=== PATIENT | male | born 1995 | race African-American/Black ===

== ENCOUNTER 2022-03-21 21:26 | Inpatient (IN) | payer BC, SELFPAY ==
[2022-03-21 21:32] VITALS: BP 124/71; PULSE 96; RESP 16; TEMP 36.7; O2SAT 100; BMI 33.3
[2022-03-21 22:04] LABS: MANUAL DIFF FLAG NO
[2022-03-21 22:07] LABS: Basophils Percent Auto 0.4 % (0-2); Eosinophils Absolute Auto 0.2 X10*3/uL (0.0-0.4); Hematocrit 46.5 % (42.0-52.0); Hemoglobin 14.9 g/dl (14.0-18.0); Imm Gran Abs Auto 0.01 X10*3/uL (0.00-0.03); Imm Gran Pct Auto 0.2 % (0.0-0.4); Lymphocytes Absolute Auto 1.7 X10*3/uL (1.2-4.9); Lymphocytes Percent Auto 36.3 % (20-40); Mean Corpuscular Hemoglobin 25.9 pg (27.0-33.0); Mean Corpuscular Volume 80.9 fL (80.0-98.0); Mean Platelet Volume 10.2 fL (9.4-12.4); Monocytes Absolute Auto 0.4 X10*3/uL (0.1-1.2); Monocytes Percent Auto 8.4 % (2-11); Neutrophils Absolute Auto 2.4 x10*3/uL (2.0-8.3); Neutrophils Percent Auto 50.7 % (45-73); Platelet Count 276 X10*3/uL (160-400); Red Blood Count 5.75 X10*6/uL (4.60-5.80); Red Cell Distribution Width 12.9 % (11.0-16.0); White Blood Count 4.8 X10*3/uL (4.8-10.8)
[2022-03-21 22:23] LABS: Alanine Aminotransferase 16 U/L (0-40); Albumin Level 4.1 g/dL (3.5-5.0); Alkaline Phosphatase 39 U/L (39-117); Anion Gap 11 (12-20); Aspartate Amino Transferase 17 U/L (5-37); Bilirubin Total 0.9 mg/dL (0.0-1.0); Blood Urea Nitrogen 8 mg/dL (9-16); Calcium 8.9 mg/dL (8.4-10.2); Carbon Dioxide 24 mmol/L (22-29); Chloride 106 mmol/L (96-108); Creatinine Clr Calc Pharmacy 126.1; Estimated Glomerular Filt Rate > 60; Ethanol < 10 mg/dL; Glucose Random 112 mg/dL (60-115); Sodium 137 mmol/L (135-145); Total Protein 7.9 g/dL (6.5-8.0)
[2022-03-21 22:34] LABS: COVID-19 Test Negative (Negative)
--- NOTE | 2022-03-21 22:34 | ED_ITS ---
HPI - Psych General Chief Complaint: Psychiatric Symptoms Stated Complaint: Crisis Time Seen by Provider: 03/21/22 22:26 Source: patient Mode of arrival: ambulatory Limitations: no limitations History of Present Illness HPI Narrative: Patient comes to the emergency room complaining of vague suicidal statements. Patient states that he has been very depressed, going through the patient ship distress. Patient states that he does not want hurt himself but he does not want to be here anymore. Patient denies homicidal ideation. Patient states in the past he has been diagnosed with major depression, has tried bupropion without any success. Patient has been off his medications for over 3 years. Patient denies any other complaints. Related Data Home Medications Medication Instructions Recorded Confirmed No Known Home Meds 03/21/22 03/21/22 Allergies Allergy/AdvReac Type Severity Reaction Status Date / Time No Known Allergies Allergy Verified 03/21/22 21:32 Review of Systems Review of Systems: Constitutional : No Weight loss, No Fever, No Chills, No Night Sweats, No Fatigue, No Malaise ENT/Mouth : No Hearing loss, No Ear Pain, No Nasal Congestion, No Sinus Pain, No Hoarseness, No sore throat, No Rhinorrhea, No Swallowing Difficulty Eyes: No Eye Pain, No Swelling, No Redness, No Foreign Body, No Discharge, No Vision Changes Cardiovascular : No Chest Pain, No SOB, No Dyspnea on Exertion, No Orthopnea, No Edema, No Palpitations Respiratory : No Cough, No Sputum, No Wheezing, No Smoke Exposure, No Dyspnea Gastrointestinal : No Nausea, No Vomiting, No Diarrhea, No Constipation, No abdominal Pain, No Hematochezia, No Melena Genitourinary : no irregular bleeding, No Dysuria, No Urinary Frequency, No Hematuria, No Urinary Incontinence, No Urgency, No Flank Pain, No Urinary Flow Changes, No Hesitancy Musculoskeletal : No joint pain, No Myalgias, No Joint Swelling Skin : No Skin Lesions, No rash Neuro : No Weakness, No Numbness, No Paresthesias, No Loss of Consciousness, No Dizziness, No Headache Psych : No anxiety, complaining of depression, vague SI, no HI Heme/Lymph: No Bruising, No Bleeding,No Lymphadenopathy Endocrine : No Polyuria, No Polydipsia, No Temperature Intolerance PMFSH Past Medical History Medical History Major depression Social History Social History Advance Directives: No Advance Directives Information Provided: No Physical Exam Vital Signs: Vital Signs: Last Vital Signs Temp 98.1 F 03/21/22 21:32 Pulse 96 03/21/22 21:32 Resp 16 03/21/22 21:32 BP 124/71 03/21/22 21:32 Pulse Ox 100 03/21/22 21:32 O2 Del Method 03/21/22 21:32 BMI result Body Mass Index 33.3 Const: Other: Appearance: Alert. Oriented X3. No acute distress. Eyes: Pupils equal, round and reactive to light. ENT: Pharynx normal. Neck: Normal inspection. Neck supple. No lymph nodes noted. No crepitus CVS: Normal heart rate and rhythm. Pulses normal. Normal S1 and S2 Respiratory: No respiratory distress. Breath sounds normal. No Wheezing. No rales Abdomen: Soft and nontender. No rigidity. No distention. Skin: Skin warm and dry. Normal skin color. Normal skin turgor. Extremities: No lower extremity edema. No Lacerations. No Rash Neuro: Oriented X 3. No motor deficit. No sensory deficit. Moving all extremities. No slurred speech. CN 2 through 12 grossly intact Psych: calm, cooperative, flat affect Course Course Course Narrative: At this time, patient is not on a Section 12. Behavioral health network consult pending. Physician observation started at 22:30 [facility] - Psych Lab Data Result diagrams: 03/21/22 21:43 03/21/22 21:43 Labs: Lab Results 03/21/22 03/21/22 Range/Units 21:43 21:43 WBC 4.8 (4.8-10.8) X10*3/uL RBC 5.75 (4.60-5.80) X10*6/uL Hgb 14.9 (14.0-18.0) g/dl Hct 46.5 (42.0-52.0) % MCV 80.9 (80.0-98.0) fL MCH 25.9 L (27.0-33.0) pg MCHC 32.0 (31.0-36.0) g/dl RDW 12.9 (11.0-16.0) % Plt Count 276 (160-400) X10*3/uL MPV 10.2 (9.4-12.4) fL Immature Gran % (Auto) 0.2 (0.0-0.4) % Neut % (Auto) 50.7 (45-73) % Lymph % (Auto) 36.3 (20-40) % Storey % (Auto) 8.4 (2-11) % Eos % (Auto) 4.0 (0-4) % Baso % (Auto) 0.4 (0-2) % Lymph # (Auto) 1.7 (1.2-4.9) X10*3/uL [place]y # (Auto) 0.4 (0.1-1.2) X10*3/uL Eos # (Auto) 0.2 (0.0-0.4) X10*3/uL Baso # (Auto) 0.0 (0.0-0.2) X10*3/uL Abs Immat Gran (auto) 0.01 (0.00-0.03) X10*3/uL Absolute Neuts (auto) 2.4 (2.0-8.3) x10*3/uL Absolute Nucleated RBC 0.000 (0.0-0.012) X10*3/uL Nucleated RBC % (auto) 0.0 (0.0-0.2) /100WBC Sodium 137 (135-145) mmol/L Potassium 4.0 (3.3-5.1) mmol/L Chloride 106 (96-108) mmol/L Carbon Dioxide 24 (22-29) mmol/L Anion Gap 11 L (12-20) BUN 8 L (9-16) mg/dL Creatinine 1.00 (0.5-1.4) mg/dL Estim Creat Clear Calc 126.1 Estimated GFR > 60 Random Glucose 112 (60-115) mg/dL Calcium 8.9 (8.4-10.2) mg/dL Total Bilirubin 0.9 (0.0-1.0) mg/dL AST 17 (5-37) U/L ALT 16 (0-40) U/L Alkaline Phosphatase 39 (39-117) U/L Total Protein 7.9 (6.5-8.0) g/dL Albumin 4.1 (3.5-5.0) g/dL Ethyl Alcohol < 10 mg/dL Discharge Plan Discharge Clinical Impression: Depression Patient Disposition: Still a Patient Prescriptions: No Action No Known Home Meds
[2022-03-21 22:46] LABS: Appearance Urine CLEAR; Color Urine YELLOW; Glucose Urine UA NEG (NEG); Leukocyte Esterase Urine NEG (NEG); Nitrite Urine NEG (NEG); Specific Gravity - Urine 1.025 (1.005-1.025); Urine Blood NEG (NEG); Urine Ketones NEG (NEG); Urine Protein NEG (NEG-TRACE)
[2022-03-21 23:15] LABS: Amphetamine Screen Urine Not Detected (Not Detect); Barbiturates, Urine Not Detected (Not Detect); Benzodiazepines Screen Urine Not Detected (Not Detect); Cannabinoid Screen Urine POSITIVE (Not Detect); Cocaine Screen Urine Not Detected (Not Detect); Fentanyl, urine Not Detected (Not Detect); Opiate Screen Urine Not Detected (Not Detect); Phencyclidine Screen Urine Not Detected (Not Detect)
--- NOTE | 2022-03-22 | ECG_ITS ---
Test Reason : MED CLEARANCE Blood Pressure : / mmHG Vent. Rate : 060 BPM Atrial Rate : 060 BPM P-R Int : 164 ms QRS Dur : 098 ms QT Int : 394 ms P-R-T Axes : -13 058 048 degrees QTc Int : 394 ms Normal sinus rhythm Normal ECG No previous ECGs available Referred By: Shoshana Selby Electronically Signed By:MICHAEL ALBARADO
[2022-03-22 06:29] VITALS: BP 121/68; PULSE 62; RESP 17; TEMP 36.4; O2SAT 99
--- NOTE | 2022-03-22 06:30 | PC.NURSE ---
Patient slept through the night, no distress observed/reported, care consult ordered/awaiting assessment, VSS, behavior non concerning, mood depressed, affect flat, patient is not on any medication at this time, will continue to monitor.
--- NOTE | 2022-03-22 07:14 | PC.NURSE ---
pstient appears to remain asleep at present respirations are even and unlabored patient appears in no distress
[2022-03-22 14:06] VITALS: BP 130/78; PULSE 56; O2SAT 100
[2022-03-22 18:00] VITALS: BP 130/78; PULSE 66; RESP 16; TEMP 36.4; O2SAT 100
[2022-03-22] MEDS: traZODone HCL 50 MG TABLET PO (21:07)
[2022-03-22] MEDS: hydrOXYzine HCL 25 MG TABLET PO (21:08)
[2022-03-23 06:00] VITALS: BP 113/62; PULSE 60; TEMP 36.6; O2SAT 100
[2022-03-23 09:09] LABS: Alanine Aminotransferase 15 U/L (0-40); Albumin Level 4.1 g/dL (3.5-5.0); Alkaline Phosphatase 39 U/L (39-117); Anion Gap 10 (12-20); Aspartate Amino Transferase 14 U/L (5-37); Bilirubin Total 1.3 mg/dL (0.0-1.0); Blood Urea Nitrogen 9 mg/dL (9-16); Calcium 9.3 mg/dL (8.4-10.2); Carbon Dioxide 29 mmol/L (22-29); Chloride 101 mmol/L (96-108); Cholesterol 131 mg/dL; Creatinine Clr Calc Pharmacy 113.6; Estimated Glomerular Filt Rate > 60; Glucose Fasting 83 mg/dL (60-99); HDL Cholesterol 53 mg/dL; LDL Cholesterol Calculated 65 mg/dl; Potassium 4.2 mmol/L (3.3-5.1); Sodium 136 mmol/L (135-145); Triglycerides 65 mg/dL
--- NOTE | 2022-03-23 14:49 | P.HPPS_ITS ---
HPI Date of Service: 03/23/22 Chief Complaint: Depression and SI Sources of Information: patient interviewed, chart reviewed and crisis/core team assessment reviewed HPI Subjective Notes: Conditional Voluntary Narrative: 26-year-old male, reports main goal is to get a therapist and medications to help with depression. Also wants to help communicate better with those around him. Reports over the last 2-3 weeks has been more depressed, much less motivation and energy, sleeping excessively, poor concentration. Passive wish. No active SI. No psychosis. No lowell. No substance issues. Stable work, relationship and living situation. Discussed medications and previously experienced sexual side effects on Zoloft and Wellbutrin. Also felt more anxious on both. Sedation on Vistaril. Discussed starting buspirone 5 mg twice daily. Past Psychiatric History: 1st admission. No medication or therapy since 2018 for fast 2019. Sexual side effects on Zoloft and Wellbutrin. No history of psychosis, lowell or suicide attempts. Medical Evaluation Reviewed: Yes [facility] Medical History Major depression Social History: Living with girlfriend of 9 months at his girlfriend's sister's house. No children. 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 No legal issues. Occasional marijuana use. Diagnostics Vital Signs (24Hr): Vital Signs - 24 hr 03/22/22 18:00 03/23/22 06:00 Temperature 97.6 F 97.9 F Pulse Rate 66 60 Respiratory Rate 16 Blood Pressure 130/78 113/62 Pulse Oximetry 100 100 Oxygen Delivery Method Room Air Room Air BMI result Body Mass Index 33.3 Labs Results: 03/21/22 21:43 03/23/22 07:30 Labs: Laboratory Results - last 48 hr 03/21/22 03/21/22 03/21/22 21:43 21:43 21:43 WBC 4.8 RBC 5.75 Hgb 14.9 Hct 46.5 MCV 80.9 MCH 25.9 L MCHC 32.0 RDW 12.9 Plt Count 276 MPV 10.2 Immature Gran % (Auto) 0.2 Neut % (Auto) 50.7 Lymph % (Auto) 36.3 [place]agher % (Auto) 8.4 Eos % (Auto) 4.0 Baso % (Auto) 0.4 Lymph # (Auto) 1.7 Meagher # (Auto) 0.4 Eos # (Auto) 0.2 Baso # (Auto) 0.0 Abs Immat Gran (auto) 0.01 Absolute Neuts (auto) 2.4 Absolute Nucleated RBC 0.000 Nucleated RBC % (auto) 0.0 Sodium 137 Potassium 4.0 Chloride 106 Carbon Dioxide 24 Anion Gap 11 L BUN 8 L Creatinine 1.00 Estim Creat Clear Calc 126.1 Estimated GFR > 60 Random Glucose 112 Fasting Glucose Calcium 8.9 Total Bilirubin 0.9 AST 17 ALT 16 Alkaline Phosphatase 39 Total Protein 7.9 Albumin 4.1 Triglycerides Cholesterol LDL Cholesterol, Calc HDL Cholesterol Urine Color Urine Appearance Urine pH Ur Specific [place] Urine Protein Urine Glucose (UA) Urine Ketones Urine Blood Urine Nitrite Ur Leukocyte Esterase Urine Opiates Screen Urine Fentanyl Screen Ur Barbiturates Screen Ur Phencyclidine Scrn Ur Amphetamines Screen U Benzodiazepines Scrn Urine Cocaine Screen U Marijuana (THC) Screen Ethyl Alcohol < 10 COVID-19 (COLT) Negative COVID-19 Clin Com See Note 03/21/22 03/21/22 03/23/22 22:23 22:23 07:30 WBC RBC Hgb Hct MCV MCH MCHC RDW Plt Count MPV Immature Gran % (Auto) Neut % (Auto) Lymph % (Auto) [place] % (Auto) Eos % (Auto) Baso % (Auto) Lymph # (Auto) [place] # (Auto) Eos # (Auto) Baso # (Auto) Abs Immat Gran (auto) Absolute Neuts (auto) Absolute Nucleated RBC Nucleated RBC % (auto) Sodium 136 Potassium 4.2 Chloride 101 Carbon Dioxide 29 Anion Gap 10 L BUN 9 Creatinine 1.11 Estim Creat Clear Calc 113.6 Estimated GFR > 60 Random Glucose Fasting Glucose 83 Calcium 9.3 Total Bilirubin 1.3 H AST 14 ALT 15 Alkaline Phosphatase 39 Total Protein 8.0 Albumin 4.1 Triglycerides 65 Cholesterol 131 LDL Cholesterol, Calc 65 HDL Cholesterol 53 Urine Color YELLOW Urine Appearance CLEAR Urine pH 6.0 Ur Specific [place] 1.025 Urine Protein NEG Urine Glucose (UA) NEG Urine Ketones NEG Urine Blood NEG Urine Nitrite NEG Ur Leukocyte Esterase NEG Urine Opiates Screen Not Detected Urine Fentanyl Screen Not Detected Ur Barbiturates Screen Not Detected Ur Phencyclidine Scrn Not Detected Ur Amphetamines Screen Not Detected U Benzodiazepines Scrn Not Detected Urine Cocaine Screen Not Detected U Marijuana (THC) Screen POSITIVE H Ethyl Alcohol COVID-19 ([facility]T) COVID-19 Clin Com Meds/Allergies Meds Home Medications Medication Instructions Recorded Confirmed Type No Known Home Meds 03/21/22 03/21/22 History Allergies Allergies Allergy/AdvReac Type Severity Reaction Status Date / Time No Known Allergies Allergy Verified 03/21/22 21:32 Mental Status Exam Mental Status Exam Narrative: Pleasant. Engaged. Softly spoken. self-care okay. Depressed. No SI. No HI. No psychosis. Insight and judgment okay Assessment & Plan Assessment & Plan (1) Major depression: Status: Acute Code(s): F32.9 - Major depressive disorder, single episode, unspecified Assessment and Plan: Has experienced sexual side effects and increased anxiety on Zoloft and Well butrin in the past. Discussed BuSpar 5 mg twice daily and agree to start same. Also interested in therapy Patient educated on: medication risk/benefits Reason for continued inpatient stay Substantial Risk for: inability to function
[2022-03-23 18:00] VITALS: BP 128/74; PULSE 68; TEMP 36.6; O2SAT 100
[2022-03-23] MEDS: hydrOXYzine HCL 25 MG TABLET PO (21:50)
[2022-03-23] MEDS: busPIRone HCl 5 MG TABLET PO (21:50)
[2022-03-23] MEDS: traZODone HCL 50 MG TABLET PO (21:50)
[2022-03-24 06:00] VITALS: BP 119/68; PULSE 62; RESP 16; TEMP 36.4; O2SAT 100
[2022-03-24] MEDS: busPIRone HCl 5 MG TABLET PO ×2 (08:43→19:16)
[2022-03-24] MEDS: Acetaminophen 325 MG TABLET 650 MG PO (09:11)
[2022-03-24] MEDS: hydrOXYzine HCL 25 MG TABLET PO (10:43)
--- NOTE | 2022-03-24 15:52 | HO.PSYCHPN ---
Subjective Subjective Date of Service: 03/24/22 Reason For Visit: Depression and SI Interim History: [employer] reviewed patient's psychiatric history. Patient reports that he has had depression since high school; anxiety seem to get worse over the past few years. Patient completed 3.5 years of college but dropped out at the last semester due to feeling overwhelmed with anxiety. Patient also has a history of trauma that he did not want to discuss and has yet to talk about with anyone; he thinks he has nightmares since he frequently wakes up in a sweaty panic. He denies any EtOH or drug abuse and does not know family history. Patient denies AVH. Patient also denies history of discrete manic type episodes or behaviors. Currently patient reports depression and anxiety that he hopes can get treated with medications; he also would like therapy. He denies SI. After review of medication history and side effects/risks, patient agreed to start venlafaxine for mood and anxiety and clonidine as a p.r.n. for anxiety also clonidine scheduled at bedtime for hyper arousal from trauma history. Patient will continue with BuSpar which was started on this admission which can hopefully reduce risk of sexual side effects. Mental Status Exam Mental Status Exam Narrative: Pt is alert and oriented; behavior is cooperative, quiet; dressed in casual attire lockhrat pulled over head, adequate hygiene; mood is described as depressed and affect congruent; eye contact appropriate; Speech is quiet, but normal rate and prosody and not pressured; some psychomotor retardation present; thought process is organized and goal directed; Thought content is on tx, dealing with depression/anxiety; otherwise pertinent to relevant topics and without any delusional content, paranoid ideations or grandiosity; denies any SI/HI. There is no evidence of perceptual disturbance and denies AVH. Patients insight and judgment is impaired, but adequate. Diagnostics Vital Signs (24Hr): Vital Signs - 24 hr 03/23/22 18:00 03/24/22 06:00 Temperature 97.9 F 97.6 F Pulse Rate 68 62 Respiratory Rate 16 Blood Pressure 128/74 119/68 Pulse Oximetry 100 100 Oxygen Delivery Method Room Air BMI result Body Mass Index 33.3 Labs Results: 03/21/22 21:43 03/23/22 07:30 Labs: Laboratory Results - last 48 hr 03/23/22 07:30 Sodium 136 Potassium 4.2 Chloride 101 Carbon Dioxide 29 Anion Gap 10 L BUN 9 Creatinine 1.11 Estim Creat Clear Calc 113.6 Estimated GFR > 60 Fasting Glucose 83 Calcium 9.3 Total Bilirubin 1.3 H AST 14 ALT 15 Alkaline Phosphatase 39 Total Protein 8.0 Albumin 4.1 Triglycerides 65 Cholesterol 131 LDL Cholesterol, Calc 65 HDL Cholesterol 53 Medications Medications Current Medications Acetaminophen (Acetaminophen 325 Mg Tablet) 650 mg PO Q6H PRN PRN Reason: Headache/Pain Mild Scale (1-3) Last Admin: 03/24/22 09:11 Dose: 650 mg Al Hydroxide/Mg Hydroxide (Magnesium Hydrox/Alum Hydrox 30 Ml Oral.Susp) 30 ml PO Q6H PRN PRN Reason: Heartburn/Nausea Buspirone HCl (Buspirone Hcl 5 Mg Tablet) 5 mg PO BID ZAFAR Last Admin: 03/24/22 08:43 Dose: 5 mg Clonidine HCl (Clonidine Hcl 0.1 Mg Tablet) 0.1 mg PO Q4H PRN; Protocol PRN Reason: anxiety Clonidine HCl (Clonidine Hcl 0.1 Mg Tablet) 0.1 mg PO BEDTIME ZAFAR; Protocol Hydroxyzine HCl (Hydroxyzine Hcl 25 Mg Tablet) 25 mg PO Q6H PRN PRN Reason: Anxiety Last Admin: 03/24/22 10:43 Dose: 25 mg Magnesium Hydroxide (Milk Of Magnesia 30 Ml Oral.Susp) 30 ml PO DAILY PRN PRN Reason: Constipation Trazodone HCl (Trazodone Hcl 50 Mg Tablet) 50 mg PO BEDTIME PRN PRN Reason: Insomnia Last Admin: 03/23/22 21:50 Dose: 50 mg Venlafaxine HCl (Venlafaxine Hcl Er 37.5 Mg Cap.Er.24h) 37.5 mg PO DAILY ZAFAR Allergies Allergies Allergy/AdvReac Type Severity Reaction Status Date / Time No Known Allergies Allergy Verified 03/21/22 21:32 Assessment & Plan Assessment & Plan (1) Major depression: Status: Acute Code(s): F32.9 - Major depressive disorder, single episode, unspecified Assessment and Plan: (2) Chronic post-traumatic stress disorder (PTSD): Status: Acute Code(s): F43.12 - Post-traumatic stress disorder, chronic Plan Patient is a 26-year-old male with history of depression, anxiety and PTSD from on discussed trauma who presents for continued anxiety and depression. Patient reports that he has had depression since high school; anxiety seem to get worse over the past few years. Patient completed 3.5 years of college but dropped out at the last semester due to feeling overwhelmed with anxiety. Patient also has a history of trauma that he did not want to discuss and has yet to talk about with anyone; he thinks he has nightmares since he frequently wakes up in a sweaty panic. He denies any EtOH or drug abuse and does not know family history. Patient denies AVH. Patient also denies history of discrete manic type episodes or behaviors. 03/24 Currently patient reports depression and anxiety that he hopes can get treated with medications; he also would like therapy. He denies SI. After review of medication history and side effects/risks, patient agreed to start venlafaxine for mood and anxiety and clonidine as a p.r.n. for anxiety also clonidine scheduled at bedtime for hyper arousal from trauma history. Patient will continue with BuSpar which was started on this admission which can hopefully reduce risk of sexual side effects (sexual side effects with Zoloft and Wellbutrin) PLAN: CV Q 15 minute checks Continue BuSpar 5 mg b.i.d. Start venlafaxine 37.5 mg for depression/anxiety/PTSD; with BuSpar hopefully this will have limited side effects Social work to help with therapist and prescriber; patient also interested in partial hospital day program I spent minutes with the patient and/or on the patient floor today, greater than?50% of which was spent counseling/coordinating care. Patient educated on: diagnosis, medication risk/benefits and therapeutic strategies Informed Consent: understands Reason for contiued inpatient stay Substantial Risk for: stable for discharge
[2022-03-24] MEDS: cloNIDine HCL 0.1 MG TABLET PO (19:16)
[2022-03-24 19:19] VITALS: BP 129/71; PULSE 73
[2022-03-24] MEDS: traZODone HCL 50 MG TABLET PO (21:38)
[2022-03-25 06:00] VITALS: BP 106/69; PULSE 61; TEMP 36.7; O2SAT 98
[2022-03-25] MEDS: Venlafaxine HCl ER 37.5 MG CAP.ER.24H PO (09:40)
[2022-03-25] MEDS: busPIRone HCl 5 MG TABLET PO ×2 (09:40→20:51)
[2022-03-25 11:21] VITALS: BP 121/70; PULSE 72
[2022-03-25] MEDS: cloNIDine HCL 0.1 MG TABLET PO ×2 (11:21→20:51)
[2022-03-25 18:00] VITALS: BP 142/69; PULSE 98; RESP 16; TEMP 36.6; O2SAT 98
[2022-03-25] MEDS: hydrOXYzine HCL 25 MG TABLET PO (20:51)
[2022-03-25] MEDS: traZODone HCL 50 MG TABLET PO (20:51)
[2022-03-26 06:00] VITALS: BP 122/73; PULSE 65; TEMP 36.9; O2SAT 98
[2022-03-26 07:00] VITALS: BMI 33.3
[2022-03-26] MEDS: Venlafaxine HCl ER 75 MG CAP.ER.24H PO (08:53)
[2022-03-26] MEDS: busPIRone HCl 5 MG TABLET PO (08:53)
[2022-03-26] MEDS: cloNIDine HCL 0.1 MG TABLET PO ×2 (09:18→19:30)
[2022-03-26] MEDS: Acetaminophen 325 MG TABLET 650 MG PO (09:18)
--- NOTE | 2022-03-26 09:42 | P.PNPSI_ITS ---
Subjective Subjective Date of Service: 03/26/22 Reason For Visit: Depression and SI Interim History: Patient reports that He got triggered last night when his roommate required a one-to-one. Patient said it was very difficult for her to have someone sitting in the room while he was Trying to sleep. [employer] talked about automatic thoughts and did An abbreviated CBT therapy session with patient who found it helpful. Today, BuSpar and venlafaxine increased. Diagnostics Vital Signs (24Hr): Vital Signs - 24 hr 03/25/22 11:21 03/25/22 18:00 03/26/22 06:00 Temperature 98 F 98.4 F Pulse Rate 72 98 65 Respiratory Rate 16 Blood Pressure 121/70 142/69 H 122/73 Pulse Oximetry 98 98 Oxygen Delivery Method Room Air Room Air BMI result Body Mass Index 33.3 Labs Results: 03/21/22 21:43 03/23/22 07:30 Medications Medications Current Medications Acetaminophen (Acetaminophen 325 Mg Tablet) 650 mg PO Q6H PRN PRN Reason: Headache/Pain Mild Scale (1-3) Last Admin: 03/26/22 09:18 Dose: 650 mg Al Hydroxide/Mg Hydroxide (Magnesium Hydrox/Alum Hydrox 30 Ml Oral.Susp) 30 ml PO Q6H PRN PRN Reason: Heartburn/Nausea Buspirone HCl (Buspirone Hcl 5 Mg Tablet) 5 mg PO BID ZAFAR Last Admin: 03/26/22 08:53 Dose: 5 mg Clonidine HCl (Clonidine Hcl 0.1 Mg Tablet) 0.1 mg PO Q4H PRN; Protocol PRN Reason: anxiety Last Admin: 03/26/22 09:18 Dose: 0.1 mg Clonidine HCl (Clonidine Hcl 0.1 Mg Tablet) 0.1 mg PO BEDTIME ZAFAR; Protocol Last Admin: 03/25/22 20:51 Dose: 0.1 mg Hydroxyzine HCl (Hydroxyzine Hcl 25 Mg Tablet) 25 mg PO Q6H PRN PRN Reason: Anxiety Last Admin: 03/25/22 20:51 Dose: 25 mg Magnesium Hydroxide (Milk Of Magnesia 30 Ml Oral.Susp) 30 ml PO DAILY PRN PRN Reason: Constipation Trazodone HCl (Trazodone Hcl 50 Mg Tablet) 50 mg PO BEDTIME PRN PRN Reason: Insomnia Last Admin: 03/25/22 20:51 Dose: 50 mg Venlafaxine HCl (Venlafaxine Hcl Er 75 Mg Cap.Er.24h) 75 mg PO DAILY ZAFAR Last Admin: 03/26/22 08:53 Dose: 75 mg Allergies Allergies Allergy/AdvReac Type Severity Reaction Status Date / Time No Known Allergies Allergy Verified 03/21/22 21:32 Assessment & Plan Assessment & Plan (1) Major depression: Status: Acute Code(s): F32.9 - Major depressive disorder, single episode, unspecified Assessment and Plan: (2) Chronic post-traumatic stress disorder (PTSD): Status: Acute Code(s): F43.12 - Post-traumatic stress disorder, chronic Plan Patient is a 26-year-old male with history of depression, anxiety and PTSD from on discussed trauma who presents for continued anxiety and depression. Patient reports that he has had depression since high school; anxiety seem to get worse over the past few years. Patient completed 3.5 years of college but dropped out at the last semester due to feeling overwhelmed with anxiety. Patient also has a history of trauma that he did not want to discuss and has yet to talk about with anyone; he thinks he has nightmares since he frequently wakes up in a sweaty panic. He denies any EtOH or drug abuse and does not know family history. Patient denies AVH. Patient also denies history of discrete manic type episodes or behaviors. 03/24 Currently patient reports depression and anxiety that he hopes can get treated with medications; he also would like therapy. He denies SI. After review of medication history and side effects/risks, patient agreed to start venlafaxine for mood and anxiety and clonidine as a p.r.n. for anxiety also clonidine scheduled at bedtime for hyper arousal from trauma history. Patient will continue with BuSpar which was started on this admission which can hopefully reduce risk of sexual side effects (sexual side effects with Zoloft and Wellbutrin) 7/ Depression a little better, still quite anxious; using PRNs.? Agrees to increasing venlafaxine and BuSpar To address continued depression/anxiety. Patient has history of side effects from medication trial so will increase here on the unit to see his tolerability. 03/26 patient's anxiety triggered any did get much sleep; however is exploring and processing events that triggered him. Today, BuSpar and venlafaxine increased. Will monitor for tolerability. Otherwise patient likely discharge tomorrow. Overall feels depression is better; remains without any SI PLAN: CV Q 15 minute checks Increased to BuSpar 10 mg b.i.d. on 03/26 Increase to venlafaxine ER 75 mg on 03/26; for depression/anxiety/PTSD; with BuSpar hopefully this will have limited side effects Social work to help with therapist and prescriber; patient also interested in partial hospital day program Social work to help with therapist and prescriber; patient also interested in partial hospital day program I spent minutes with the patient and/or on the patient floor today, greater than?50% of which was spent counseling/coordinating care. Patient educated on: diagnosis and therapeutic strategies Informed Consent: understands Reason for contiued inpatient stay Substantial Risk for: stable for discharge
--- NOTE | 2022-03-26 13:59 | P.PNPSI_ITS ---
Subjective Subjective Date of Service: 03/25/22 Reason For Visit: Depression and SI Interim History: Patient reports that his mood is a little better and he is less depressed. Denies any SI. He feels like clonidine has been helpful and he did not wake up last night and sweaty panic. Patient still has considerable anxiety. He is tolerating venlafaxine and BuSpar and agrees to increasing doses starting tomorrow. Patient would like to go to the partial day program which has been discussed with social work Mental Status Exam Mental Status Exam Narrative: Pt is alert and oriented; behavior is cooperative, quiet; dressed in casual attire lockhart pulled over head, adequate hygiene; mood is described as little better and affect congruent; eye contact appropriate; Speech is less quiet; normal rate and prosody and not pressured; no psychomotor retardation; thought process is organized and goal directed; Thought content is on tx, dealing with depression/anxiety; otherwise pertinent to relevant topics and without any delusional content, paranoid ideations or grandiosity; denies any SI/HI. There is no evidence of perceptual disturbance and denies AVH. Patients insight and judgment is impaired, but adequate. Diagnostics Vital Signs (24Hr): Vital Signs - 24 hr 03/25/22 18:00 03/26/22 06:00 Temperature 98 F 98.4 F Pulse Rate 98 65 Respiratory Rate 16 Blood Pressure 142/69 H 122/73 Pulse Oximetry 98 98 Oxygen Delivery Method Room Air Room Air BMI result Body Mass Index 33.3 Labs Results: 03/21/22 21:43 03/23/22 07:30 Medications Medications Current Medications Acetaminophen (Acetaminophen 325 Mg Tablet) 650 mg PO Q6H PRN PRN Reason: Headache/Pain Mild Scale (1-3) Last Admin: 03/26/22 09:18 Dose: 650 mg Al Hydroxide/Mg Hydroxide (Magnesium Hydrox/Alum Hydrox 30 Ml Oral.Susp) 30 ml PO Q6H PRN PRN Reason: Heartburn/Nausea Buspirone HCl (Buspirone Hcl 10 Mg Tablet) 10 mg PO BID ZAFAR Clonidine HCl (Clonidine Hcl 0.1 Mg Tablet) 0.1 mg PO Q4H PRN; Protocol PRN Reason: anxiety Last Admin: 03/26/22 09:18 Dose: 0.1 mg Clonidine HCl (Clonidine Hcl 0.1 Mg Tablet) 0.1 mg PO BEDTIME ZAFAR; Protocol Last Admin: 03/25/22 20:51 Dose: 0.1 mg Hydroxyzine HCl (Hydroxyzine Hcl 25 Mg Tablet) 25 mg PO Q6H PRN PRN Reason: Anxiety Last Admin: 03/25/22 20:51 Dose: 25 mg Magnesium Hydroxide (Milk Of Magnesia 30 Ml Oral.Susp) 30 ml PO DAILY PRN PRN Reason: Constipation Trazodone HCl (Trazodone Hcl 50 Mg Tablet) 50 mg PO BEDTIME PRN PRN Reason: Insomnia Last Admin: 03/25/22 20:51 Dose: 50 mg Venlafaxine HCl (Venlafaxine Hcl Er 75 Mg Cap.Er.24h) 75 mg PO DAILY ZAFAR Last Admin: 03/26/22 08:53 Dose: 75 mg Allergies Allergies Allergy/AdvReac Type Severity Reaction Status Date / Time No Known Allergies Allergy Verified 03/21/22 21:32 Assessment & Plan Assessment & Plan (1) Major depression: Status: Acute Code(s): F32.9 - Major depressive disorder, single episode, unspecified Assessment and Plan: (2) Chronic post-traumatic stress disorder (PTSD): Status: Acute Code(s): F43.12 - Post-traumatic stress disorder, chronic Plan Patient is a 26-year-old male with history of depression, anxiety and PTSD from on discussed trauma who presents for continued anxiety and depression. Patient reports that he has had depression since high school; anxiety seem to get worse over the past few years. Patient completed 3.5 years of college but dropped out at the last semester due to feeling overwhelmed with anxiety. Patient also has a history of trauma that he did not want to discuss and has yet to talk about with anyone; he thinks he has nightmares since he frequently wakes up in a sweaty panic. He denies any EtOH or drug abuse and does not know family history. Patient denies AVH. Patient also denies history of discrete manic type episodes or behaviors. 03/24 Currently patient reports depression and anxiety that he hopes can get treated with medications; he also would like therapy. He denies SI. After review of medication history and side effects/risks, patient agreed to start venlafaxine for mood and anxiety and clonidine as a p.r.n. for anxiety also clonidine scheduled at bedtime for hyper arousal from trauma history. Patient will continue with BuSpar which was started on this admission which can hopefully reduce risk of sexual side effects (sexual side effects with Zoloft and Wellbutrin) 03/25 Depression a little better, still quite anxious; using PRNs. Agrees to increasing venlafaxine and BuSpar To address continued depression/anxiety. Jessi jeffers has history of side effects from medication trial so will increase here on the unit to see his tolerability. PLAN: CV Q 15 minute checks Will increase to BuSpar 10 mg b.i.d. on 03/26 Will increase to venlafaxine ER 75 mg on 03/26; for depression/anxiety/PTSD; with BuSpar hopefully this will have limited side effects Social work to help with therapist and prescriber; patient also interested in partial hospital day program I spent minutes with the patient and/or on the patient floor today, greater than?50% of which was spent counseling/coordinating care. Patient educated on: medication risk/benefits and therapeutic strategies Informed Consent: understands Reason for contiued inpatient stay Substantial Risk for: med/psych decompensation
[2022-03-26] MEDS: busPIRone HCl 10 MG TABLET PO (19:30)
[2022-03-27] MEDS: cloNIDine HCL 0.1 MG TABLET PO (02:25)
[2022-03-27] MEDS: hydrOXYzine HCL 25 MG TABLET PO (02:25)
[2022-03-27 06:00] VITALS: BP 117/72; PULSE 69; RESP 18; TEMP 36.7; O2SAT 98
[2022-03-27] MEDS: busPIRone HCl 10 MG TABLET PO (08:44)
[2022-03-27] MEDS: Venlafaxine HCl ER 75 MG CAP.ER.24H PO (08:44)
--- NOTE | 2022-03-27 11:01 | PM.PSYDC ---
DS: Providers Provider Date of Service: 03/27/22 Date of admission: 03/22/22 14:42 Date of discharge: 03/27/22 Primary care physician: None Physician Attending physician on admission: Aniceto Carranza Attending physician on discharge: Catracho Parson DS: Diagnosis Discharge Diagnosis (1) Major depression: Status: Acute (2) Chronic post-traumatic stress disorder (PTSD): Status: Acute DS: Medications Discharge Medications Home Medications: Previous Rx's Medication Instructions Recorded buspirone 10 mg tablet 10 mg PO BID 30 days #60 tabs 03/27/22 clonidine HCl 0.1 mg tablet 0.1 mg PO TID PRN anxiety/insomnia 03/27/22 30 days #90 tabs hydroxyzine HCl 25 mg tablet 25 mg PO TID PRN Anxiety 30 days 03/27/22 #60 tabs trazodone 50 mg tablet 50 mg PO BEDTIME PRN Insomnia 30 03/27/22 days #30 tabs venlafaxine 75 mg capsule,extended 75 mg PO DAILY 30 days #30 caps 03/27/22 release 24 hr Mental Status Exam Mental Status Exam Narrative: Pt is alert and oriented; behavior is cooperative and calm; dressed in casual attire with adequate hygiene, lockhart off; mood is described as good and affect congruent, brighter; eye contact appropriate; Speech is normal volume, rate and prosody; no psychomotor retardation; thought process is organized and goal directed; Thought content is on tx, attending partial day progam and continuing to deal with depression/anxiety; otherwise pertinent to relevant topics and without any delusional content, paranoid ideations or grandiosity; denies any SI/HI. There is no evidence of perceptual disturbance and denies AVH. Patients insight and judgment are fair and adequate. Data Data Completed and Pending Completed studies during hospitalization [Text1]: 03/21/22 03/21/22 03/21/22 21:43 21:43 21:43 WBC 4.8 RBC 5.75 Hgb 14.9 Hct 46.5 MCV 80.9 MCH 25.9 L MCHC 32.0 RDW 12.9 Plt Count 276 MPV 10.2 Immature Gran % (Auto) 0.2 Neut % (Auto) 50.7 Lymph % (Auto) 36.3 [place] % (Auto) 8.4 Eos % (Auto) 4.0 Baso % (Auto) 0.4 Lymph # (Auto) 1.7 [place] # (Auto) 0.4 Eos # (Auto) 0.2 Baso # (Auto) 0.0 Abs Immat Gran (auto) 0.01 Absolute Neuts (auto) 2.4 Absolute Nucleated RBC 0.000 Nucleated RBC % (auto) 0.0 Sodium 137 Potassium 4.0 Chloride 106 Carbon Dioxide 24 Anion Gap 11 L BUN 8 L Creatinine 1.00 Estim Creat Clear Calc 126.1 Estimated GFR > 60 Random Glucose 112 Fasting Glucose Calcium 8.9 Total Bilirubin 0.9 AST 17 ALT 16 Alkaline Phosphatase 39 Total Protein 7.9 Albumin 4.1 Triglycerides Cholesterol LDL Cholesterol, Calc HDL Cholesterol Urine Color Urine Appearance Urine pH Ur Specific [place] Urine Protein Urine Glucose (UA) Urine Ketones Urine Blood Urine Nitrite Ur Leukocyte Esterase Urine Opiates Screen Urine Fentanyl Screen Ur Barbiturates Screen Ur Phencyclidine Scrn Ur Amphetamines Screen U Benzodiazepines Scrn Urine Cocaine Screen U Marijuana (THC) Screen Ethyl Alcohol < 10 COVID-19 (COLT) Negative COVID-19 Clin Com See Note 03/21/22 03/21/22 03/23/22 22:23 22:23 07:30 WBC RBC Hgb Hct MCV MCH MCHC RDW Plt Count MPV Immature Gran % (Auto) Neut % (Auto) Lymph % (Auto) [place] % (Auto) Eos % (Auto) Baso % (Auto) Lymph # (Auto) [place] # (Auto) Eos # (Auto) Baso # (Auto) Abs Immat Gran (auto) Absolute Neuts (auto) Absolute Nucleated RBC Nucleated RBC % (auto) Sodium 136 Potassium 4.2 Chloride 101 Carbon Dioxide 29 Anion Gap 10 L BUN 9 Creatinine 1.11 Estim Creat Clear Calc 113.6 Estimated GFR > 60 Random Glucose Fasting Glucose 83 Calcium 9.3 Total Bilirubin 1.3 H AST 14 ALT 15 Alkaline Phosphatase 39 Total Protein 8.0 Albumin 4.1 Triglycerides 65 Cholesterol 131 LDL Cholesterol, Calc 65 HDL Cholesterol 53 Urine Color YELLOW Urine Appearance CLEAR Urine pH 6.0 Ur Specific [place] 1.025 Urine Protein NEG Urine Glucose (UA) NEG Urine Ketones NEG Urine Blood NEG Urine Nitrite NEG Ur Leukocyte Esterase NEG Urine Opiates Screen Not Detected Urine Fentanyl Screen Not Detected Ur Barbiturates Screen Not Detected Ur Phencyclidine Scrn Not Detected Ur Amphetamines Screen Not Detected U Benzodiazepines Scrn Not Detected Urine Cocaine Screen Not Detected U Marijuana (THC) Screen POSITIVE H Ethyl Alcohol COVID-19 (COLT) COVID-19 Clin Com DS: Summary Hospital Course Hospital Course: HPI: ?Patient is a 26-year-old male with history of depression, anxiety and PTSD from on discussed trauma who presents for continued anxiety and depression. Patient reports that he has had depression since high school; anxiety seem to get worse over the past few years. Patient completed 3.5 years of college but dropped out at the last semester due to feeling overwhelmed with anxiety.? Patient also has a history of trauma that he did not want to discuss and has yet to talk about with anyone; he thinks he has nightmares since he frequently wakes up in a sweaty panic.? He denies any EtOH or drug abuse and does not know family history.? Patient denies AVH.? Patient also denies history of discrete manic type episodes or behaviors.? Hospital course: On admission, patient reports depression and anxiety that he hopes can get treated with medications; he also would like therapy.? He denies SI. After review of medication history and side effects/risks, patient agreed to start venlafaxine for mood and anxiety and clonidine as a p.r.n. for anxiety also clonidine scheduled at bedtime for hyper arousal from trauma history.? Patient will continue with BuSpar which was started on this admission which can hopefully reduce risk of sexual side effects (sexual side effects with Zoloft and Wellbutrin) Over the next few days depression abated though he was still quite anxious and medications were titrated to good effect. Also PRNs use to good effect. Patient's mood improved further and he felt his depression was mostly resolved; also felt better equipped to handle his anxiety and was able to utilize coping skills to help calm himself down. Patient felt safe and asked for discharge. He tolerated medications well, mood had improved and was without any SI. Also his affect was noticeably brighter. Patient is future oriented and looking forward to going to partial day program. Also looking forward to getting involved in therapy which he says he has been avoiding. Patient denied any SI prior to or during this admission; he was appropriate with peers and staff, engaged in therapy and attending groups. Patient also demonstrated good behavioral and impulse control throughout his stay. He was not in imminent risk for harm to self or others and his request for discharge honored. Status at Discharge Functional status at discharge: independent ambulation Overall status at discharge: patient is back to baseline Time Spent with Patient Time attestation: Total time spent providing and/or coordinating discharge services: Time spent: Less than 30 minutes Discharge Plan Discharge Patient Disposition: Home, Self-Care Discharge Diagnosis: MDD, recurrent, moderate without psychosis, in partial remission Referrals: Therapy Intake: David Miranda [Other] - 04/01/22 4:00 pm (This is a Telehealth appointment) Psychiatric Medication Evaluation: Sandra Archuleta [Other] - 04/27/22 10:00 am (This appointment is in-office) Psychiatric Medication Management: Sandra Archuleta [Other] - 05/27/22 10:00 am (This appointment is in-office) Partial Hospitalization Program: Clau Solano [Other] - 03/30/22 9:00 am (The PHP is a virtual program. Clau will call you @ 3PM on Wednesday and will complete the PHP intake on Wednesday @ 9am virtually) Physician,None [Primary Care Provider] - 09/09/22 4:00 pm (Dr BLACK [address] [place] [address]) Discharge Medications: New clonidine HCl 0.1 mg Tablet 0.1 mg PO TID PRN (Reason: anxiety/insomnia) 30 Days Qty: 90 0RF Protocol: Hold for SBP< HOLD for SBP < : 90 buspirone 10 mg Tablet 10 mg PO BID 30 Days Qty: 60 0RF hydroxyzine HCl 25 mg Tablet 25 mg PO TID PRN (Reason: Anxiety) 30 Days Qty: 60 0RF trazodone 50 mg Tablet 50 mg PO BEDTIME PRN (Reason: Insomnia) 30 Days Qty: 30 0RF venlafaxine 75 mg Capsule,Extended Release 24hr 75 mg PO DAILY 30 Days Qty: 30 0RF Discharge Orders: Discharge Order (Routine); Ordered 03/27/22 Ordered By: Catracho Parson Diet: Regular diet Activity on Discharge: As tolerated Stand Alone Forms: Patient Portal Discharge page, Community Support Care Plan Goals: Maintain mood and safe behaviors Take medications as prescribed Practice coping skills Continue with outpatient providers and reach out to them as needed Health Concerns: Mood stability and behaviors Plan of Treatment: Follow up with your PCP, psychiatric provider and other outpatient providers regarding above concerns Take medications as prescribed Assessment: Risk assessment at time of discharge:? Patient was interviewed prior to discharge and found to be fully oriented and without any SI or HI. Patient has insight and demonstrates good judgment in terms of wanting to pursue treatment. Patient is not in imminent risk of harm to self or others and has a safety plan that includes presenting to the closest ER or calling 911 if feeling unsafe.? Patient has been observed closely by nursing and unit staff throughout admission; patient has not engaged in any behaviors that suggest dangerousness to self or others and has demonstrated appropriate behaviors and impulse control Discharge Date/Time: 03/27/22 14:09
== END 2022-03-27 14:09 | disposition home or self-care (01) | DRG 754 ==
LOC: HO.ED 03-22 11:45 → HO.PM5 03-22 14:48
PROVIDERS: Psychiatry & Neurology Psychiatry; Admitting Provider Psychiatry & Neurology Psychiatry; Emergency Provider Emergency Medicine; Visit Provider Psychiatry & Neurology Psychiatry
DX: F32.9 Major depressive disorder, single episode, unspecified (principal); R45.851 Suicidal ideations; F41.9 Anxiety disorder, unspecified; F12.90 Cannabis use, unspecified, uncomplicated; F43.12 Post-traumatic stress disorder, chronic; Z20.822 Contact with and (suspected) exposure to COVID-19; Z79.899 Other long term (current) drug therapy
CPT/HCPCS: 36415; 80053; 80061; 80307; 81003; 82077; 85025; 87635; 93005; 99285

== ENCOUNTER 2022-04-08 09:30 | Outpatient (RCR) | payer BC, SELFPAY ==
[2022-03-31 11:09] VITALS: BMI 33.2
--- NOTE | 2022-03-31 11:28 | PC.ADMIT ---
Patient is a 26 year old male who, per records, self presented to the [facility] d/t increased depressive SXS and increased anxiety with panic attacks. Patient has a history of PTSD. Patient was admitted to the [facility] inpatient [facility] who referred patient to [facility] as step down to treatment. Patient reported life stressors including moving to a new place and having to find a new job. Patient reported relationship stresses with his girlfriend of 9 months who he currently resides with. Patient reports he is struggling with depression, lack of motivation, self esteem, self isolation and anxiety with panic attacks. Patient is alert and oriented x4. Calm and cooperative. Denied SI. Asked patient who he could contact if he started to feel unsafe and he stated crisis. Emailed patient a copy of his safety plan if needed. Medications reconciled with patient and patient's discharge medical record from inpatient admission. Patient reports taking medications as prescribed. Patient reports smoking marijuana daily 2-3 puffs 1-2 times a day. Last time he used was 4 days ago. Plans on abstaining from use while in the program.
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
--- NOTE | 2022-04-02 10:48 | PC.NURSE ---
Patient did not come to the program today. I called and spoke to patient who stated he was not attending d/t c/o nausea and diarrhea. Patient denied any safety issues. Denied any SI or thoughts to harm himself. Encouraged patient to increase fluid intake and if symptoms worsen to call his PCP. Yolanda Nguyen NP is aware.
--- NOTE | 2022-04-06 12:23 | P.PNPSP_ITS ---
Subjective Subjective Date of Service: 04/06/22 Reason For Visit: MDD Medical Problems Affecting Mental Status: No Interim History: Continues with dysphoric mood, anxiety. States ?I am not having a great day, and it was not a good weekend ?. Started Lamictal on 03/31, no side effects. No SI, HI, no safety concerns. Medication Compliance: Yes Side effects from medications: No Attending Groups: Yes Review of Systems Acute medical concerns: No Review of Systems Review of Systems Yes all other systems are reviewed and are negative Constitutional: Reports difficulty sleeping Reports Normal hearing present Gastrointestinal: Reports no additional gastrointestinal complaints Reports Normal hearing present Psychiatric: Reports anxiety and Reports depression Mental Status Exam Mental Status Exam Narrative: FE. Fully alert and attentive during encounter. Patient Appearance: Appropriate Patient Orientation: Person, Place, Time and Situation Level of Consciousness: Appropriate Patient Behavior: Appropriate Mood Description: Depressed and Anxious Affect Description: Blunted and Flat Patient Cognition Impaired: No Ability to Follow Directions: Good Speech Pattern: Coherent and Soft-Spoken Memory Description: Intact Hallucinations: None Delusions: Not Present Thought Process: Intact Thought Content: positive for Intact Depressive Symptoms: Increased Anxiety, Difficulty Sleeping, Loss of Int. in Activity, Feelings of Worthlessness, Isolating-Friends/Family, Feelings of Guilt, Unhappiness, Increased Fatigue and Loss of Energy Judgement: Fair Diagnostics Vital Signs (24Hr): BMI result Body Mass Index 33.2 Assessment & Plan Assessment & Plan (1) MDD (major depressive disorder), recurrent episode: Status: Acute Code(s): F33.9 - Major depressive disorder, recurrent, unspecified Assessment and Plan: Continues with dysphoric mood, anxiety. States ?I am not having a great day, and it was not a good weekend ?. Reports that precipitants has been situational, which in turn increases his level of depression and anxiety. He did not elaborate regarding stressors over weekend. Started Lamictal on 03/31, no side effects. Denies any side effects regarding venlafaxine, BuSpar. We discussed increasing venlafaxine and BuSpar doses, he was in agreement with this plan. No SI, HI, no safety concerns. He states that he feels safe. Reports some difficulty sleeping last evening, attributes this to situational stressors. States he will try to discuss some of these issues during groups. (2) Chronic post-traumatic stress disorder (PTSD): Status: Acute Code(s): F43.12 - Post-traumatic stress disorder, chronic (3) Anxiety disorder, unspecified: Status: Acute Code(s): F41.9 - Anxiety disorder, unspecified Assessment and Plan: Continues to participate in PHP groups, work on development and practice of healthy coping skills. Plan 1. Continue with current [facility] plan of care. 2. Increase BuSpar to 10 mg t.i.d.. Script sent to pharmacy. 3. Add venlafaxine ER 37.5 mg daily to already existing script of 75 mg daily, new daily dose is venlafaxine ER 112.5 mg daily. Script sent to pharmacy. 4. Follow-up as per protocol. Patient educated on: diagnosis, medication risk/benefits and therapeutic strategies Informed Consent: understands Reason for contiued partial hosp. stay Substantial Risk for: harm to self, inability to function, rapid decompensation and med/psych decompensation Certification I certify that partial hospital treatment is medically necessary due to the symptoms and problems resulting from the patient's mental illness and the failure to treat the patient at the partial hospital level of care would likely result in the patient requiring inpatient psychiatric care which could not be prevented at a less intensive level of care. I spent minutes with the patient and/or on the patient floor today, greater than?50% of which was spent counseling/coordinating care. Discharge Plan Discharge Attending provider: Mahin Dai Medications: New lamotrigine [Lamictal] 25 mg tablet 25 mg PO DAILY 14 Days Qty: 14 0RF buspirone 10 mg tablet 10 mg PO TID 14 Days Qty: 42 0RF venlafaxine 37.5 mg capsule,extended release 24hr 37.5 mg PO DAILY 14 Days Qty: 14 0RF Rx Instructions: Take with venlafaxine ER 75 mg, for total daily dose of 112.5 mg Discontinued buspirone 10 mg Tablet 10 mg PO BID 30 Days Qty: 60 0RF No Action clonidine HCl 0.1 mg Tablet 0.1 mg PO TID PRN (Reason: anxiety/insomnia) 30 Days Qty: 90 0RF Protocol: Hold for SBP< HOLD for SBP < : 90 hydroxyzine HCl 25 mg Tablet 25 mg PO TID PRN (Reason: Anxiety) 30 Days Qty: 60 0RF trazodone 50 mg Tablet 50 mg PO BEDTIME PRN (Reason: Insomnia) 30 Days Qty: 30 0RF venlafaxine 75 mg Capsule,Extended Release 24hr 75 mg PO DAILY 30 Days Qty: 30 0RF Stand Alone Forms: Patient Portal Discharge page Patient Education: Depression (DC), Post Traumatic Stress Disorder (DC) Telehealth Telehealth Location of provider rendering services: practice address Location of patient: address on file Patient Identification confirmed using: Name, : Yes Patient verbally consented to treatment: Yes Patient verbally consented to billing insurance company: Yes Patient informed of any privacy concerns related to visit: Yes Minutes spent on Phone/Video with Pt.: 15
--- NOTE | 2022-04-07 09:50 | PC.NURSE ---
Patient did not show up to community meeting this morning. I called Abhilash and spoke to him. He stated he left a message on Clau's voicemail stating he was not going to be coming to [facility] ([facility] has the day off today). 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 Patient stated he is going to need to move thus he stated he needs to go back to work and will not be able to attend [facility] as a result. I asked patient if he was safe and he stated he was safe, Denied SI. Patient asked if I could call him back around lunchtime at 11:30 as he was in the middle of something and could not talk. I agreed.
--- NOTE | 2022-04-07 11:58 | PC.NURSE ---
Spoke to Abhilash at 11:30. He stated he and his girlfriend live with his girlfriends sister and they are no longer able to stay at the sisters house. However, they would be able to stay at his girlfriends sisters house if his girlfriend was willing to give up a friendship she has with one of her ex's, per her sister's request, however his girlfriend is unwilling to give up the relationship at present. Patient stated he is planning on moving back home with his parents however he is worried about his girlfriend as she has no place to go. Gave patient the number to the housing authority in [place] and numbers to local shelters. Patient is planning on attending PHP on Wednesday and wants Wednesday to be his last day in the program.
--- NOTE | 2022-04-08 12:12 | PC.NURSE ---
Patient scheduled to discharge from the program today. Stated he needs to get back to work in preparation of moving back home with his parents. Patient feeling ready for discharge. Denied SI or thoughts to harm himself. Patient has the crisis numbers if needed. Reviewed patient's medications with patient. Patient reports taking medications as prescribed. Patient reports he has appointments with [facility] for therapy once a week every Wednesday and has a new prescriber appointment on April 27, 2022.
--- NOTE | 2022-04-08 12:27 | PC.NURSE ---
Patient stated he has an appointment with his PCP on September 09, 2022.
--- NOTE | 2022-04-08 14:06 | P.PNPSP_ITS ---
Subjective Subjective Date of Service: 04/08/22 Reason For Visit: MDD Medical Problems Affecting Mental Status: No Interim History: Patient states ?I am doing okay ?. Reports that his mood is ?not bad, not super happy, but okay . Denies any SI/HI, no safety concerns. Reports that he needs to move in the very near future, and that he also needs to return to work. Plans to return to the [facility]. Asking for out of work letter, letter with return to work with no restrictions. Tolerating increased BuSpar and venlafaxine doses without any concerns. Medication Compliance: Yes Side effects from medications: No Attending Groups: Yes Review of Systems Acute medical concerns: No Medical Review of Systems: unchanged Review of Systems Review of Systems Yes all other systems are reviewed and are negative Constitutional: Reports no additional constitutional complaints Mental Status Exam Mental Status Exam Narrative: NAD. Patient Appearance: Well Grooomed and Appropriate Patient Orientation: Person, Place, Time and Situation Level of Consciousness: Appropriate Patient Behavior: Appropriate, Cooperative and Good Eye Contact Mood Description: Appropriate Affect Description: Flat Patient Cognition Impaired: No Ability to Follow Directions: Good Speech Pattern: Clear, Coherent and Soft-Spoken Memory Description: Intact Hallucinations: None Delusions: Not Present Thought Process: Intact Thought Content: positive for Intact Depressive Symptoms: Increased Anxiety, Difficulty Sleeping, Loss of Int. in Activity, Unhappiness and Increased Fatigue Judgement: Good Diagnostics Vital Signs (24Hr): BMI result Body Mass Index 33.2 Assessment & Plan Assessment & Plan (1) MDD (major depressive disorder), recurrent episode: Status: Acute Code(s): F33.9 - Major depressive disorder, recurrent, unspecified Assessment and Plan: Patient states ?I am doing okay ?. Reports that his mood is ?not bad, not super happy, but okay . Patient reports that although he is leaving program a little sooner than he expected, that he does feel stable, safe at this time. Denies any SI/HI, no safety concerns. Reports that he needs to move in the very near future, and that he also needs to return to work. Asking for out of work letter, letter with return to work with no restrictions. Tolerating increased BuSpar and venlafaxine doses without any concerns. Has only been taking for several days, has not yet noticed any type of difference. Does need refills until initial outpatient appointment scheduled for several weeks from now. Refills needed for BuSpar 10 3 times daily, venlafaxine. Patient has been taking Lamictal 25 mg, script for 50 mg daily sent to pharmacy. Education was provided regarding completion of the 14 day script for 25 mg daily, and then proceed to the 50 mg daily times 14 days. Side effects were reviewed. Patient does not report any type of rash or any other issues at this time. (2) Anxiety disorder, unspecified: Status: Acute Code(s): F41.9 - Anxiety disorder, unspecified (3) Chronic post-traumatic stress disorder (PTSD): Status: Acute Code(s): F43.12 - Post-traumatic stress disorder, chronic Plan 1. Patient appears stable for discharge at this time. 2. Refill prescriptions sent to pharmacy. 3. Patient to follow-up with outpatient providers going forward. 4. Out of work letter, return to work with no restrictions note provided. Patient educated on: diagnosis, medication risk/benefits and therapeutic strategies Informed Consent: understands Reason for contiued partial hosp. stay Substantial Risk for: stable for discharge Certification I certify that partial hospital treatment is medically necessary due to the symptoms and problems resulting from the patient's mental illness and the failure to treat the patient at the partial hospital level of care would likely result in the patient requiring inpatient psychiatric care which could not be prevented at a less intensive level of care. I spent minutes with the patient and/or on the patient floor today, greater than?50% of which was spent counseling/coordinating care. Discharge Plan Discharge Attending provider: Mahin Dai Additional Instructions: Patient stated he has an appointment every Wednesday with his therapist at [facility] and a prescriber appointment at [facility] on April 27, 2022. Medications: New buspirone 10 mg tablet 10 mg PO TID Qty: 90 0RF venlafaxine 37.5 mg capsule,extended release 24hr 37.5 mg PO DAILY Qty: 30 0RF Rx Instructions: Take with venlafaxine ER 75 mg, for total daily dose of 112.5 mg lamotrigine 25 mg tablet 50 mg PO DAILY 14 Days Qty: 28 0RF Rx Instructions: After completion of lamotrigine 25 mg daily times 14 days, start lamotrigine 50 mg daily times 14 days. Discontinued buspirone 10 mg Tablet 10 mg PO BID 30 Days Qty: 60 0RF No Action clonidine HCl 0.1 mg Tablet 0.1 mg PO TID PRN (Reason: anxiety/insomnia) 30 Days Qty: 90 0RF Protocol: Hold for SBP< HOLD for SBP < : 90 hydroxyzine HCl 25 mg Tablet 25 mg PO TID PRN (Reason: Anxiety) 30 Days Qty: 60 0RF trazodone 50 mg Tablet 50 mg PO BEDTIME PRN (Reason: Insomnia) 30 Days Qty: 30 0RF venlafaxine 75 mg Capsule,Extended Release 24hr 75 mg PO DAILY 30 Days Qty: 30 0RF Stand Alone Forms: Patient Portal Discharge page Patient Education: Depression (DC), Post Traumatic Stress Disorder (DC) Telehealth Telehealth Location of provider rendering services: practice address Location of patient: address on file Patient Identification confirmed using: Name, : Yes Telehealth method: video Patient verbally consented to treatment: Yes Patient verbally consented to billing insurance company: Yes Patient informed of any privacy concerns related to visit: Yes Minutes spent on Phone/Video with Pt.: 15
== END 2022-04-08 23:59 | disposition home or self-care (01) ==
LOC: HO.PHPA 09:30
PROVIDERS: Visit Provider Psychiatry & Neurology Psychiatry
DX: F33.9 Major depressive disorder, recurrent, unspecified (principal); F43.12 Post-traumatic stress disorder, chronic; F41.9 Anxiety disorder, unspecified; Z79.899 Other long term (current) drug therapy
CPT/HCPCS: 90853